=== PATIENT | female | born 1975 | race Caucasian/White ===

== ENCOUNTER → 2020-11-07 | Outpatient (CLI) | payer OTHER ==
[~2020-11-07] MED LIST: CEFUROXIME250 MG PO; K-DUR TAB 20 M20 MEQ PO; ZOFRAN ODT 4 MG4 MG SL
[2020-11-07 08:08] LABS: HEMOGLOBIN 11.4 gm/dl (12.3-15.3); RED BLOOD COUNT 4.66 M/UL (4.00-5.10); WHITE BLOOD COUNT 10.7 K/UL (4.5-11.0)
[2020-11-07 08:36] LABS: BUN/CREATININE RATIO 18 (0-10)
== END ==
LOC: LAB 07:16
PROVIDERS: Colon & Rectal Surgery
DX: K60.1 Chronic anal fissure (principal); I10 Essential (primary) hypertension; R94.31 Abnormal electrocardiogram [ECG] [EKG]
CPT/HCPCS: 36415; 80048; 85027; 93005

== ENCOUNTER → 2020-11-15 | Outpatient (CLI) | payer OTHER | LOC: LAB 07:37 | DX: E87.6 Hypokalemia (principal) | CPT/HCPCS: 36415; 84132 ==